=== PATIENT | male | born 1975 | race Two or more races ===

== ENCOUNTER 2017-08-24 14:13 | Emergency (ER) | payer MEDICAID, OTHER ==
[~2017-08-24] VITALS: Ht 177.8 cm; Wt 81.6 kg
[2017-08-24] MEDS ORDERED: SODIUM CHLORIDE 0.9% 1,000 ML IVB ONE (14:25)
[2017-08-24] MEDS ORDERED: diphenhdrAMINE HCL 50 MG/1 ML VL IV ONE (14:30)
[2017-08-24] MEDS ORDERED: LORazepam 2MG/ML-1ML VIAL IV ONE (14:30)
[2017-08-24] MEDS ORDERED: HALOPERIDOL LACTATE 5 MG/ML INJ VIAL IM ONE (14:30)
[2017-08-24 15:14] LABS: Albumin 4.5 g/dL (3.4-5.0); Anion Gap 13 (5-15); BUN/Creatinine Ratio 15.4; Blood Urea Nitrogen 20 mg/dL (7-18); Calcium 9.9 mg/dL (8.5-10.1); Carbon Dioxide 21 mmol/L (21-32); Chloride 105 mmol/L (98-107); GFR African American 79 mL/min; GFR Non-African American 65 mL/min; Glucose 90 mg/dL (74-106); Magnesium 2.2 mg/dL (1.6-2.6); Potassium 3.4 mmol/L (3.5-5.1); Sodium 139 mmol/L (136-145)
[2017-08-24 15:30] LABS: Alkaline Phosphatase 56 U/L (45-117); Aspartate Aminotransferase 44 U/L (15-37); Bilirubin, Total 0.9 mg/dL (0.2-1.0); Total Protein 8.2 g/dL (6.4-8.2)
[2017-08-24 15:31] LABS: Basophils # (auto) 0.1 uL; Eosinophils # (auto) 0 uL; Eosinophils % (auto) 0.2 % (0.0-7.0); Monocytes % (auto) 13.2 % (0.0-12.0)
[2017-08-24 15:32] LABS: Basophils % (auto) 0.6 % (0.0-2.0); Hematocrit 44.5 % (41.0-53.0); Hemoglobin 15.6 g/dL (13.5-17.5); Lymphocytes # (auto) 5.1 uL; Lymphocytes % (auto) 34.4 % (10.0-50.0); Mean Corpuscular Hemoglobin 34.7 pg (28.0-32.0); Mean Corpuscular Hgb Conc. 35.2 g/dL (32.0-36.0); Mean Corpuscular Volume 98.6 fL (80.0-100.0); Mean Platelet Volume 7.5 fL (6.9-10.8); Neutrophils # (auto) 7.6 uL; Neutrophils % (auto) 51.6 % (37.0-80.0); Platelet Count (auto) 267 10^3/uL (140-450); Red Cell Distribution Width 13.8 % (11.8-14.3); White Blood Cell 14.8 10^3/uL (4.4-10.8)
[2017-08-24 19:53] VITALS: BP 101/55
== END 2017-08-24 21:35 | disposition home or self-care (01) ==
LOC: ER 14:13
DX: R41.82 Altered mental status, unspecified (principal); G92 Toxic encephalopathy; I10 Essential (primary) hypertension; F17.210 Nicotine dependence, cigarettes, uncomplicated
CPT/HCPCS: 36415; 80053; 80307; 80320; 83735; 84484; 85025; 93005; 94761; 96361; 96372; 96374; 96375; 99285; J1200; J1630; J2060